=== PATIENT | male | born 1995 | race Caucasian/White ===

== ENCOUNTER 2017-07-08 14:35 | Emergency (ER) | payer OTHER ==
[~2017-07-08] VITALS: Ht 182.9 cm; Wt 85.0 kg
[2017-07-08 14:42] VITALS: Ht 182.9 cm; Wt 85.0 kg
[2017-07-08] MEDS ORDERED: IBUPROFEN 800 MG TAB PO ONE (15:30)
--- NOTE | 2017-07-08 16:21 | RADRPT ---
PROCEDURE: XR Ankle. CLINICAL INDICATION: Right ankle pain following injury TECHNIQUE: Three views of the right ankle are available for review COMPARISON: None available FINDINGS: The osseous structures demonstrate normal alignment and mineralization. No acute fracture or disloc ation is seen. The ankle mortise is intact. No periostitis or osteochondral lesion is identified. There is soft tissue swelling overlying the lateral malleolus. IMPRESSION: Soft tissue swelling overlying the lateral malleolus. No acute fracture identified. RPTAT: HH .Althea Ramirez MD, MD Date Time Electronically viewed and signed by .Althea Ramirez MD, MD on 07/08/2017 16:21 .G/
--- NOTE | 2017-07-08 16:50 | ERD ---
ER Documentation Chief Complaint Chief Complaint BIB RA FOR EVAL OF RT ANKLE PAIN S/P TWISTED ANKLE. 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 The patient is able to bear weight, but walking was difficult. He has swelling and pain to the lateral aspect of the right ankle. He wanted to make sure it was not fractured or dislocated. The patient's sensation is intact. He is able to move the ankle in all directions, but it is painful. The patient's pulses are intact. His ankle is not cold or pale or blue. Does not endorse any other symptoms. He had no other injury or trauma. The patient denies feeling sick recently. The patient denies fever or chills. The patient has had no headache or vision changes. The patient does not endorse neck or back pain. The patient denies lightheadedness or dizziness. The patient has had no chest pain or shortness of breath or trouble breathing. The patient denies nausea or vomiting. The patient denies abdominal pain or changes to bowel movements or urination. The patient has had no focal deficits. The patient has had no weakness or numbness or tingling to the face or extremities. ROS All systems reviewed and are negative except as per history of present illness. PMhx/Soc Medical and Surgical Hx: pt denies Surgical Hx History of Surgery: No Anesthesia Reaction: No Hx Neurological Disorder: No Hx Respiratory Disorders: No Hx Cardiac Disorders: No Hx Psychiatric Problems: No Hx Miscellaneous Medical Probl: No Hx Alcohol Use: Yes (Occasional) Hx Substance Use: No Hx Tobacco Use: No FmHx Family History: No coronary disease, No diabetes Physical Exam Vitals Vital Signs Date Time Temp Pulse Resp B/P Pulse Ox O2 Delivery O2 Flow Rate FiO2 07/08/17 14:42 98.1 76 19 137/87 98 Physical Exam Const: No apparent distress, well-developed, well-nourished Head: Normocephalic, Atraumatic Eyes: Normal Conjunctiva. Extraocular movements intact. Pupils equal, round and reactive to light ENT: Normal External Ears, Nose and Mouth. Neck: Full range of motion. No meningismus. Resp: Clear to auscultation bilaterally, No wheezes, rales or rhonchi Cardio: Regular rate and rhythm. No murmurs, rubs or gallops Abd: Soft, non tender, non distended. Normal bowel sounds Skin: No petechiae or rashes Back: No midline tenderness. No CVA tenderness Ext: No cyanosis. Right ankle swelling. Tenderness to the anterior lateral right ankle. No significant posterior tenderness to the lateral or medial malleolus. The patient is able to bear weight on the ankle, but he has difficulty with walking. Neur: Awake and alert, oriented 4. Cranial nerves intact. No facial droop. Normal strength, sensation and coordination. Psych: Normal Mood and Affect Results 24 hrs Current Medications Medications (Trade) Dose Ordered Sig/Isreal Route PRN Reason Start Time Stop Time Status Last Admin Dose Admin Ibuprofen (Motrin) 800 mg ONCE ONCE PO 07/08/17 15:30 07/08/17 15:31 DC 07/08/17 15:33 Procedures/MDM MDM The patient's presentation warrants further investigation. I have higher suspicion for a ligamentous injury over fracture or dislocation. However, the patient endorses an inability to walk. We will obtain an x-ray. IMAGING XR Ankle FINDINGS: The osseous structures demonstrate normal alignment and mineralization. No acute fracture or dislocation is seen. The ankle mortise is intact. No periostitis or osteochondral lesion is identified. There is soft tissue swelling overlying the lateral malleolus. IMPRESSION: Soft tissue swelling overlying the lateral malleolus. No acute fracture identified. Electronically viewed and signed by .Althea Ramirez MD, MD on 07/08/2017 16 :21 TREATMENT/DISPOSITION The patient's x-ray revealed soft tissue swelling without evidence of fracture or dislocation. I have high suspicion for a right ATFL ligament sprain. The patient was given ibuprofen in the emergency department. He will have a an Bipin bandage placed on his ankle. He will be provided crutches to help with comfort. He may bear weight as tolerated. He should follow-up with his primary care doctor in 2-3 days for reevaluation. If his symptoms persist, he may benefit from orthopedic evaluation. I suspect that his symptoms will be self-limited. At this time, I feel that the patient stable for discharge. The patient will be given strict precautions with which to return to the emergency department. The patient's blood pressure was elevated at greater than 120/80 while in the emergency department. The patient was otherwise stable with no evidence of hypertensive urgency or emergency or end organ damage. The patient does not require admission for blood pressure control. I have discussed with the patient the risks of hypertension. I have advised the patient to follow up with the primary care physician for outpatient monitoring and treatment for hypertension in 2-3 days. I have instructed the patient to return to the ER for any new or worsening symptoms including chest pain, shortness of breath, headache, blurred vision, confusion, nausea, vomiting or LOC. Disclaimer: Inadvertent spelling and grammatical errors are likely due to EHR/ dictation software use and do not reflect on the overall quality of patient care. Note that the electronic time recorded on this note does not necessarily reflect the actual time of the patient encounter. Departure Diagnosis: Primary Impression: Sprain of anterior talofibular ligament of right ankle Encounter type: initial encounter Qualified Code: S93.491A - Sprain of anterior talofibular ligament of right ankle, initial encounter Condition: Stable JAMES ESCUDERO MD Jul 08, 2017 16:50
[2017-07-08 17:08] VITALS: BP 113/65; PULSE 65; RESP 18; TEMP 97.8
== END 2017-07-08 17:08 | disposition home or self-care (01) ==
LOC: E/R 14:35
DX: S93.491A Sprain of other ligament of right ankle, initial encounter (principal); X50.9XXA Other and unspecified overexertion or strenuous movements or postures, initial encounter; Y92.9 Unspecified place or not applicable